=== PATIENT | female | born 1975 | race Caucasian/White ===

== ENCOUNTER 2017-05-11 11:08 | Emergency (ER) | payer BC ==
[2017-05-11 11:14] VITALS: BP 116/72; PULSE 66; TEMP 98; BMI 43.5
--- NOTE | 2017-05-11 11:30 | PDOC ---
History of Present Illness - General Chief Complaint: Pain Stated Complaint: EMPLOYEE, SICK Time Seen by Provider: 05/11/17 11:15 History Source: Patient Exam Limitations: No Limitations - History of Present Illness Initial Comments: 05/11/17 12:47 Patient is a 41 y/o female, history of hypothroidism, 5 c-sections. Presents to the Emergency Department with reproducible right lateral hip pain for one month. Has been taking Motrin with relief. Denies any abdominal pain, no urinary symptoms, No nausea or vomiting. No nausea vomiting, no saddle anesthesia, denies any back or neck pain. No recent trauma. Allergies: No known allergies Medications: See medication list Family History: Non-contributory Social History: Denies smoking, alcohol use, or IVDU Review of Systems GENERAL/CONSTITUTIONAL: No fever or chills. No weakness. No weight change. HEAD, EYES, EARS, NOSE AND THROAT: No change in vision. No ear pain or discharge. No sore throat. CARDIOVASCULAR: No chest pain or shortness of breath. RESPIRATORY: No cough, wheezing, or hemoptysis. GASTROINTESTINAL: No nausea, vomiting, diarrhea or constipation. No rectal bleeding. GENITOURINARY: No dysuria, frequency, or change in urination. MUSCULOSKELETAL: No joint or muscle swelling or pain. No neck or back pain. Pain around area of right SI, hip flexor tendon SKIN: No rash or easy bruising. NEUROLOGIC: No headache, vertigo, loss of consciousness, or loss of sensation. Physical Exam: GENERAL: The patient is awake, alert, and fully oriented, in no acute distress. HEAD: Normal with no signs of trauma. EYES: Pupils equal, round and reactive to light, extraocular movements intact, sclera anicteric, conjunctiva clear. ENT: Ears normal, nares patent, oropharynx clear without exudates. Moist mucous membranes. No uvula deviation NECK: Normal range of motion, supple without lymphadenopathy, JVD, or masses. LUNGS: Breath sounds equal, clear to auscultation bilaterally. No wheezes, and no crackles. HEART: Regular rate and rhythm, normal S1 and S2 without murmur, rub or gallop. ABDOMEN: Soft, nontender, normoactive bowel sounds. No guarding, no rebound. No masses. No bruising or abrasions MUSCULOSKELETAL: Normal range of motion, no edema. No clubbing or cyanosis. No cords, erythema, or tenderness. No CVA Tenderness with fist palpation. NEUROLOGICAL: Cranial nerves II through XII grossly intact. Normal speech, normal gait. PSYCH: Normal mood, normal affect. SKIN: Warm, Dry, normal turgor, no rashes or lesions noted. Past History - Past Medical History Allergies/Adverse Reactions: Allergies Allergy/AdvReac Type Severity Reaction Status Date / Time No Known Allergies Allergy Verified 05/11/17 11:09 Home Medications: Ambulatory Orders Diclofenac Sodium 50 mg PO TID #21 tablet. 05/11/17 Diabetes: Yes (border line) Thyroid Disease: Yes - Surgical History Abdominal Surgery: Yes (HERNIA) - Psycho/Social/Smoking Cessation Hx Anxiety: No Suicidal Ideation: No Smoking History: Never smoked Have you smoked in the past 12 months: No Information on smoking cessation initiated: No Hx Alcohol Use: No Drug/Substance Use Hx: No Substance Use Type: None *Physical Exam - Vital Signs Last Vital Signs Temp Pulse Resp BP Pulse Ox 98.0 F 66 16 116/72 100 05/11/17 11:09 05/11/17 11:09 05/11/17 11:09 05/11/17 11:09 05/11/17 11:09 Medical Decision Making - Medical Decision Making 05/11/17 14:14 A/P: Patient with right lateral hip pain, reproducible, denies any urinary symptoms. Urine sent and negative, x-rays of right hip performed and are negative. Abdominal exam is benign, denies any back pain. Pain is musculoskeletal in nature, possible hip flexor tendinitis. Pain is responsive to anti-inflammatories. We'll DC patient home on anti-inflammatories, follow-up with orthopedics. Recommend MRI since x-rays are negative. If pain persists. I discussed the physical exam findings, ancillary test results and final diagnoses with the patient. I answered all of the patient's questions. The patient was satisfied with the care received and felt comfortable with the discharge plan and treatment plan. The patient will call to arrange follow-up and will return to the Emergency Department with any new, persistent or worsening symptoms. 05/11/17 14:19 *DC/Admit/Observation/Transfer Diagnosis at time of Disposition: Hip pain Qualifiers: Laterality: right Qualified Code(s): M25.551 - Pain in right hip - Discharge Dispostion Disposition: HOME Condition at time of disposition: Stable Admit: No - Prescriptions Prescriptions: Diclofenac Sodium 50 mg PO TID #21 tablet.dr - Referrals Referrals: Tonny Hicks [Primary Care Provider] - - Patient Instructions Additional Instructions: Recommend follow up with ortho for evaluation. Xray negative, if pain persists recommend MRI.
[2017-05-11] MEDS ORDERED: IBUPROFEN 600 MG TABLET (FP) PO ONE ×2 (13:29→13:51)
== END 2017-05-11 13:52 | disposition home or self-care (01) ==
LOC: JERFT 11:08
DX: M25.551 Pain in right hip (principal); E03.9 Hypothyroidism, unspecified; E11.9 Type 2 diabetes mellitus without complications
CPT/HCPCS: 73523-TC; 84703; 99281-25

== ENCOUNTER 2017-11-04 08:40 | Emergency (ER) | payer BC ==
[2017-11-04 08:44] VITALS: BP 132/66; PULSE 67; TEMP 98; BMI 44.9
--- NOTE | 2017-11-04 08:57 | PDOC ---
History of Present Illness - General Chief Complaint: Injury Stated Complaint: INJURY Time Seen by Provider: 11/04/17 08:51 History Source: Patient Exam Limitations: No Limitations - History of Present Illness Initial Comments: 11/04/17 08:53 Status post slip and fall last night onto outstretched left hand. Complaints of pain and immobility to left wrist. No other injury Occurred: reports: just prior to arrival Severity: reports: mild, moderate Pain Location: reports: upper extremity (left wrist) Method of Injury: Yes: fall Modifying Factors: improves with: None, pain medication Loss of Consciousness: no loss of consciousness Associated Symptoms (Fall): denies symptoms Past History - Travel Traveled outside of the country in the last 30 days: No Close contact w/someone who was outside of country & ill: No - Past Medical History Allergies/Adverse Reactions: Allergies Allergy/AdvReac Type Severity Reaction Status Date / Time No Known Allergies Allergy Verified 11/04/17 08:44 Home Medications: Ambulatory Orders Levothyroxine [Synthroid -] 100 mcg PO DAILY 11/04/17 COPD: No Diabetes: Yes (border line) Thyroid Disease: Yes - Surgical History Abdominal Surgery: Yes (HERNIA) - Suicide/Smoking/Psychosocial Hx Smoking History: Never smoked Have you smoked in the past 12 months: No Information on smoking cessation initiated: No Hx Alcohol Use: No Drug/Substance Use Hx: No Substance Use Type: None Trauma Specific PMHX - Complaint Specific PMHX Back Injury: No Neck Injury: No Review of Systems - Review of Systems Able to Perform ROS?: Yes Is the patient limited Mohawk proficient: Yes Constitutional: Yes: See HPI. No: Symptoms Reported, Fever, Malaise HEENTM: Yes: See HPI. No: Symptoms Reported Respiratory: No: Symptoms reported Musculoskeletal: Yes: Symptoms Reported, See HPI, Joint Pain, Joint Swelling Integumentary: Yes: Symptoms Reported, See HPI, Bruising All Other Systems: Reviewed and Negative *Physical Exam - Vital Signs Last Vital Signs Temp Pulse Resp BP Pulse Ox 98 F 67 19 132/66 99 11/04/17 08:42 11/04/17 08:42 11/04/17 08:42 11/04/17 08:42 11/04/17 08:42 - Physical Exam General Appearance: Yes: Nourished, Appropriately Dressed, Apparent Distress, Mild Distress HEENT: positive: LONG, Normal ENT Inspection, TMs Normal, Pharynx Normal Neck: negative: Tender Respiratory/Chest: positive: Lungs Clear Musculoskeletal: positive: Normal Inspection Extremity: positive: Normal Capillary Refill. negative: Normal Inspection ( mild swelling noted to the distal aspect of left wrist at radius and ulna. No crepitus or step-offs, range of motion is intact but has pain with severe flexion and extension. Strong grasp flexion and extension to fingers. No snuffbox tenderness), Normal Range of Motion, Tender Integumentary: positive: Normal Color, Warm Neurologic: positive: housing officer II-XII NML intact, Fully Oriented, Alert, Normal Mood/ Affect, Normal Response, Motor Strength 03/22 Progress Note - Progress Note Progress Note: Left wrist sprain, no fractures or dislocations noted an x-ray. Kodi wrap and wrist immobilizer applied and sling *DC/Admit/Observation/Transfer Diagnosis at time of Disposition: Left wrist sprain Qualifiers: Encounter type: initial encounter Qualified Code(s): S63.502A - Unspecified sprain of left wrist, initial encounter - Discharge Dispostion Disposition: HOME Condition at time of disposition: Stable Admit: No - Referrals Referrals: Master Guerrero MD [Staff Physician] - - Patient Instructions Printed Discharge Instructions: DI for Wrist Sprain Additional Instructions: Rest, ice to area on and off for 15 minutes 4-6 times a day Avoid heavy lifting or exercise until pain and swelling is resolved or until further directed Keep area highly elevated to reduce swelling Use splints/Kodi wrap as directed Followup with orthopedist in one to 2 days if not improving, if significantly improved may wait one week for followup with orthopedist May use ibuprofen 2-200 mg tablets every 6 hours as needed for pain - Post Discharge Activity Forms/Work/School Notes: Back to Work
[2017-11-04] MEDS ORDERED: IBUPROFEN 600 MG TABLET (FP) PO ONE (09:04)
== END 2017-11-04 09:26 | disposition home or self-care (01) ==
LOC: JERFT 08:40
PROC: 2W3DX1Z Immobilization of Left Lower Arm using Splint (ICD-10-PCS; principal; 2017-11-04)
DX: S63.502A Unspecified sprain of left wrist, initial encounter (principal); W19.XXXA Unspecified fall, initial encounter; Y93.89 Activity, other specified; Y92.89 Other specified places as the place of occurrence of the external cause; Y99.8 Other external cause status
CPT/HCPCS: 73110-TC-LT; 99282-25

== ENCOUNTER 2018-05-31 10:53 | Emergency (ER) | payer BC ==
[2018-05-31 11:00] VITALS: BP 126/56; PULSE 64; TEMP 97.6; BMI 46.0
[2018-05-31] MEDS ORDERED: IBUPROFEN 600 MG TABLET (FP) PO ONE ×2 (11:28→11:40)
--- NOTE | 2018-05-31 11:34 | PDOC ---
History of Present Illness - General Chief Complaint: Injury Stated Complaint: FALL/ LT ANKLE PAIN Time Seen by Provider: 05/31/18 11:01 History Source: Patient Exam Limitations: No Limitations - History of Present Illness Initial Comments: 05/31/18 11:33 42-year-old female status post mechanical fall. Patient states was at a department store when she did see the the step causing her to trip twisting her left ankle. Patient denies previous injury to the affected area, radiation of pain, or sensory changes distal to injury. Occurred: reports: just prior to arrival Severity: reports: mild Pain Location: reports: lower extremity Method of Injury: Yes: fall Associated Symptoms (Fall): trouble walking Past History - Travel Traveled outside of the country in the last 30 days: No - Past Medical History Allergies/Adverse Reactions: Allergies Allergy/AdvReac Type Severity Reaction Status Date / Time No Known Allergies Allergy Verified 05/31/18 11:02 Home Medications: Ambulatory Orders Levothyroxine [Synthroid -] 100 mcg PO DAILY 11/04/17 Hydrocodone/Ibuprofen [Hydrocodone-Ibuprofen 7.5-200] 1 each PO Q6H #10 tablet MDD 4 mg 12/09/17 COPD: No Diabetes: Yes (border line) Thyroid Disease: Yes - Surgical History Abdominal Surgery: Yes (HERNIA) - Suicide/Smoking/Psychosocial Hx Smoking History: Never smoked Have you smoked in the past 12 months: No Information on smoking cessation initiated: No Hx Alcohol Use: No Drug/Substance Use Hx: No Substance Use Type: None Patient Lives Alone: No Lives with/in: spouse/SO Trauma Specific PMHX - Complaint Specific PMHX Back Injury: No Neck Injury: No Review of Systems - Review of Systems Able to Perform ROS?: No Constitutional: No: Symptoms Reported Musculoskeletal: Yes: Joint Pain, Joint Swelling Neurological: No: Numbness, Paresthesia Hematologic/Lymphatic: No: Symptoms Reported *Physical Exam - Vital Signs Last Vital Signs Temp Pulse Resp BP Pulse Ox 97.6 F 64 16 126/56 100 05/31/18 10:56 05/31/18 10:56 05/31/18 10:56 05/31/18 10:56 05/31/18 10:56 - Physical Exam General Appearance: Yes: Nourished, Appropriately Dressed. No: Apparent Distress Vascular Pulses: Doralis-Pedis (L): 2+ Extremity: positive: Normal Capillary Refill, Tender (lateral aspect of left malleolus). negative: Normal Range of Motion Integumentary: positive: Normal Color, Warm, Moist, Swelling (left malleolus). negative: Ecchymosis Neurologic: positive: Motor Strength 03/22 ED Treatment Course - RADIOLOGY Radiology Studies Ordered: Category Date Time Status ANKLE-LEFT [RAD] Stat Radiology 05/31/18 11:01 Ordered Medical Decision Making - Medical Decision Making 05/31/18 11:19 Patient status post mechanical fall causing discomfort to left ankle pain. Patient noted edema and limited range of motion. No palpable crepitus or deformity. Patient ordered for ankle x-ray along with Motrin. 05/31/18 11:39 X-ray negative. Patient to be discharged, crutches and Kodi wrap. *DC/Admit/Observation/Transfer Diagnosis at time of Disposition: Left ankle sprain - Discharge Dispostion Disposition: HOME Condition at time of disposition: Good - Referrals - Patient Instructions Printed Discharge Instructions: DI for Ankle Sprain Additional Instructions: Apply ice to the affected area for the next 72 hours as much as you can tolerate. Please elevate when not walking. Use Kodi wrap during the day remove at night. May take Motrin 600 every 8 hours for discomfort and inflammation. - Post Discharge Activity
== END 2018-05-31 12:17 | disposition home or self-care (01) ==
LOC: JER 10:53
DX: S93.492A Sprain of other ligament of left ankle, initial encounter (principal); W01.0XXA Fall on same level from slipping, tripping and stumbling without subsequent striking against object, initial encounter; Y93.89 Activity, other specified; Y92.59 Other trade areas as the place of occurrence of the external cause; Y99.8 Other external cause status
CPT/HCPCS: 73610-TC-LT-FY; 99281-25

== ENCOUNTER 2023-06-12 05:06 | Day surgery (SDC) | payer BC ==
[2023-06-07 11:26] VITALS: BMI 41.1
[~2023-06-12 05:06] MED LIST: BUPIVACAINE HCL/PF 0.5% (5MG/ML) 10 ML VIAL IJ ONE; LIDOCAINE 1%/EPI 1:100000 (20 ML MULTI DOSE VIAL) IJ ONE
[2023-06-12] MEDS ORDERED: MIDAZOLAM HCL 2 MG/2 ML SINGLE DOSE VIAL ONE (10:33)
[2023-06-12] MEDS ORDERED: PROPOFOL 40 ML ONE (10:33)
[2023-06-12] MEDS ORDERED: BUPIVACAINE HCL/PF 0.5% (5MG/ML) 10 ML VIAL ONE (11:15)
[2023-06-12] MEDS ORDERED: ACETAMINOPHEN 325 MG TABLET (FP) PO PRN (11:22)
[2023-06-12] MEDS ORDERED: PROMETHAZINE HCL 25 MG/1 ML VIAL IVPB PRN (11:22)
[2023-06-12] MEDS ORDERED: ONDANSETRON 4 MG/2 ML VIAL IVPUSH PRN (11:22)
[2023-06-12] MEDS ORDERED: oxyCODONE HCL 5 MG TABLET PO PRN ×2 (11:22)
[2023-06-12] MEDS ORDERED: LACTATED RINGERS SOLUTION 1,000 ML IV SCH (11:30)
[2023-06-12] MEDS ORDERED: KETOROLAC TROMETHAMINE 30 MG/1 ML VIAL ONE (11:30)
[2023-06-12] MEDS ORDERED: ONDANSETRON 4 MG/2 ML VIAL ONE (11:30)
[2023-06-12] MEDS ORDERED: LIDOCAINE 1%/EPI 1:100000 (20 ML MULTI DOSE VIAL) IJ ONE (11:38)
[2023-06-12] MEDS ORDERED: BENZOIN/ALOE VERA/STORAX/TOLU 58 ML BOTTLE ONE (11:44)
[2023-06-12] MEDS ORDERED: BUPIVACAINE HCL/PF 0.5% (5MG/ML) 10 ML VIAL IJ ONE (11:46)
[2023-06-12 17:18] VITALS: RESP 20; TEMP 98.6
[2023-06-12 17:21] VITALS: BP 110/57; PULSE 59
== END 2023-06-12 12:45 | disposition home or self-care (01) ==
LOC: JASU-SURG 05:06
PROVIDERS: ATTEND Surgery Surgical Oncology
PROC: 0HBT0ZX Excision of Right Breast, Open Approach, Diagnostic (ICD-10-PCS; principal; 2023-06-12 10:30)
DX: N60.81 Other benign mammary dysplasias of right breast (principal)
CPT/HCPCS: 81025; 82962